=== PATIENT | male | born 1995 | race Caucasian/White ===

== ENCOUNTER 2019-06-09 18:07 | Emergency (ER) | payer OTHER ==
[2019-06-09 18:30] VITALS: BP 159/56
--- NOTE | 2019-06-09 19:09 | UC ---
General HPI - HPI Summary HPI Summary: pt has bites on his ankle and L 5th finger. he is concerned that the finger site may be from a spider because it is more swollen and red. he did squeeze the finger site. + itching. They are from [place] and he recently moved here thus they are concerned about spiders. + cat in the home but it was flea tx prior to the bites. pt has been outside in [place]. - History of Current Complaint Chief Complaint: [place] Stated Complaint: BUG BITE Time Seen by Provider: 06/09/19 18:32 Hx Obtained From: Patient, Family/Flour Blender Pain Intensity: 0 Associated Signs & Symptoms: Negative: Fever - Allergy/Home Medications Allergies/Adverse Reactions: Allergies Allergy/AdvReac Type Severity Reaction Status Date / Time No Known Allergies Allergy Verified 06/09/19 18:28 Home Medications: Home Medications NK [No Home Medications Reported] 06/09/19 [History Confirmed 06/09/19] PMH/Surg Hx/FS Hx/Imm Hx Previously Healthy: Yes - Surgical History Surgical History: Yes Surgery Procedure, Year, and Place: KIDNEY STONES - Family History Known Family History: Positive: Non-Contributory - Social History Alcohol Use: Rare Substance Use Type: None Smoking Status (MU): Never Smoked Tobacco Review of Systems All Other Systems Reviewed And Are Negative: No Constitutional: Negative: Fever Skin: Positive: Rash Musculoskeletal: Negative: Arthralgia, Decreased ROM Physical Exam Triage Information Reviewed: Yes Appearance: Well-Appearing Vital Signs: Initial Vital Signs Temp 98.7 F 06/09/19 18:28 Pulse 89 06/09/19 18:28 Resp 16 06/09/19 18:28 BP 159/56 06/09/19 18:28 Pulse Ox 100 06/09/19 18:28 Vital Signs Reviewed: Yes Musculoskeletal: Positive: ROM Intact Skin Exam: Normal, Other - multiple red slightly raised wheels around both ankles and one on 5th finger. no streaking. none are fluctuant. none on rest of body. no limited rom to BLE's or 5th finger. no streaking and no warmth. Course/Dx - Differential Dx - Multi-Symptom Differential Diagnoses: Other - no concern for MRSA/secondary infection. - Diagnoses Provider Diagnosis: Insect bites Discharge ED - Sign-Out/Discharge Documenting (check all that apply): Patient Departure All imaging exams completed and their final reports reviewed: No - Discharge Plan Condition: Stable Disposition: HOME Patient Education Materials: Insect Bite or Sting (ED) Referrals: No Primary Care Phys,NOPCP [Primary Care Provider] - Additional Instructions: CALL TO ESTABLISH A PRIMARY CARE SOON POSSIBLE. RECHECK IN 5 DAYS IF NOT BETTER OR SOONER IF WORSE. - Billing Disposition and Condition Condition: STABLE Disposition: Home
== END 2019-06-09 19:10 | disposition home or self-care (01) ==
LOC: UCCORT 18:07
DX: S60.467A Insect bite (nonvenomous) of left little finger, initial encounter (principal); S90.562A Insect bite (nonvenomous), left ankle, initial encounter; S90.561A Insect bite (nonvenomous), right ankle, initial encounter; W57.XXXA Bitten or stung by nonvenomous insect and other nonvenomous arthropods, initial encounter; Y92.9 Unspecified place or not applicable
CPT/HCPCS: 99201; G0463